=== PATIENT | male | born 1995 | race African-American/Black ===

== ENCOUNTER 2023-05-05 10:02 | Emergency (ER) | payer OTHER, SELFPAY ==
[2023-05-05] VITALS (21 sets, daily range): BP systolic 112–146; BP diastolic 50–100; PULSE 48–139; RESP 18; TEMP 36.2; O2SAT 91–99; BMI 26.4
--- NOTE | 2023-05-05 11:33 | ED.NURSE ---
verbal order given for repeat adenosine dose of 12mg. This was given with MD at bedside at 1126.
[2023-05-05] MEDS: ADENOSINE 6 MG/2ML INJ IVP (11:35)
[2023-05-05] MEDS: ADENOSINE 6 MG/2ML INJ 12 MG IVP (11:40)
[2023-05-05] MEDS: METOPROLOL TARTRATE 1 MG/ML inj 5 MG IVP (11:59)
[2023-05-05] MEDS: 0.9 % SODIUM CHLORIDE 1000 ml 1,000 ML IV (12:00)
[2023-05-05] MEDS: dilTIAZem 5 MG/ML inj 20 MG IVP (12:36)
--- NOTE | 2023-05-05 12:55 | ED.ARRPALP ---
HPI - Arrhythmia/Palpitations General Chief Complaint: Arrhythmia/Palpitations Stated Complaint: Irregular heartbeat Time Seen by Provider: 05/05/23 10:44 History of Present Illness HPI narrative: This 28-year-old male comes in with palpitations and increased heart rate. He states that he is otherwise in good health. He arrives with a heart rate at 170 beats per minute. He states that he did have some alcohol last night. He is not on any other medications. He does not have a prior history of symptoms like this. He does not report any chest pain, nausea, vomiting, lightheadedness, shortness of breath, or diaphoresis. He states that he does feel some tingling in his fingers at times. Related Data Previous Rx's Medication Instructions Recorded metoprolol tartrate 25 mg tablet 25 mg PO BID #14 tabs 05/05/23 Allergies Allergy/AdvReac Type Severity Reaction Status Date / Time No Known Drug Allergies Allergy Verified 05/05/23 10:10 Review of Systems Status of ROS: Reports: 10 or more systems reviewed and unremarkable except as noted in History and below Narrative: Constitutional: No fevers, no weight gain or loss. Eyes: No discharge. No vision changes. HENT: No congestion, no sore throat, no ear pain. Cardiovascular: No chest pain. Respiratory: No shortness of breath, no wheezes, no cough. Gastrointestinal: No abdominal pain, no vomiting, no diarrhea. Genitourinary: No dysuria, no hematuria. Musculoskeletal: Normal range of motion. Skin: No rashes, no pruritis. Neurological: No dizziness, weakness, speech change. Endo/Heme/Allergies: No bruising or bleeding. No polydipsia. Pysch: no suicidality, no anxiety, no insomnia. All other systems reviewed and are negative. Exam Narrative: Exam Narrative: Constitutional: Well-developed, well-nourished, no acute distress. HEENT: Normocephalic, atraumatic. Neck: Normal range of motion. Nontender. Supple. Heart: Tachycardia. Intact distal pulses. Lungs: Clear to auscultation. No chest discomfort. No wheezes, rhonchi, or rales. Abdomen: Normal bowel sounds. Nontender. No rebound tenderness. Genitalia: Deferred. Back: No midline tenderness. Normal range of motion. Extremities: Normal range of motion. No injury. Skin: Intact. No rash. Warm. No erythema or pallor. Neurologic: No altered sensation. No weakness. Alert and oriented. Psychiatric: No suicidality. No anxiety or depression. No insomnia. Nursing notes and vitals signs are reviewed. Const: Vital Signs, click to edit/add: Vital Signs - 24 hr 05/05/23 10:07 05/05/23 10:20 05/05/23 10:21 Temperature 97.2 F L Pulse Rate 85 88 Pulse Rate [Right Pulse Oximeter] 120 H Respiratory Rate 18 Blood Pressure 114/89 Blood Pressure [Ri ght Upper Arm] 146/78 H Pulse Oximetry 98 96 97 Oxygen Delivery Me thod Room Air 05/05/23 10:30 05/05/23 10:31 05/05/23 10:45 Temperature Pulse Rate 92 139 H 102 H Pulse Rate [Right Pulse Oximeter] Respiratory Rate Blood Pressure 130/98 H Blood Pressure [Ri ght Upper Arm] Pulse Oximetry 99 97 98 Oxygen Delivery Me thod 05/05/23 11:00 05/05/23 11:03 05/05/23 11:15 Temperature Pulse Rate 91 82 79 Pulse Rate [Right Pulse Oximeter] Respiratory Rate Blood Pressure 118/50 L Blood Pressure [Ri ght Upper Arm] Pulse Oximetry 98 96 97 Oxygen Delivery Me thod 05/05/23 11:30 05/05/23 11:34 Temperature Pulse Rate 83 93 Pulse Rate [Right Pulse Oximeter] Respiratory Rate Blood Pressure 112/82 Blood Pressure [Ri ght Upper Arm] Pulse Oximetry 95 96 Oxygen Delivery Me thod Course Vital Signs Vital signs: Initial Vital Signs Temperature 97.2 F L 05/05/23 10:07 Temperature Source Temporal Artery Scan 05/05/23 10:07 Pulse Rate 120 H 05/05/23 10:07 Respiratory Rate 18 05/05/23 10:07 Blood Pressure 146/78 H 05/05/23 10:07 Blood Pressure Mean 100 05/05/23 10:07 Blood Pressure Position Sitting 05/05/23 10:07 Pulse Oximetry 98 05/05/23 10:07 Oxygen Delivery Method Room Air 05/05/23 10:07 Vital Signs Temperature 97.2 F L 05/05/23 10:07 Pulse Rate 120 H 05/05/23 10:07 Respiratory Rate 18 05/05/23 10:07 Blood Pressure 146/78 H 05/05/23 10:07 Pulse Oximetry 98 05/05/23 10:07 Oxygen Delivery Method Room Air 05/05/23 10:07 Temperature 97.2 F L 05/05/23 10:07 Pulse Rate 93 05/05/23 11:34 Respiratory Rate 18 05/05/23 10:07 Blood Pressure 112/82 05/05/23 11:34 Pulse Oximetry 96 05/05/23 11:34 Oxygen Delivery Method Room Air 05/05/23 10:07 MDM - Arrhythmia/Palpitations MDM Narrative Medical decision making narrative: This patient arrives with tachycardia with a rate around 170 beats per minute. Given the increased heart rate it is difficult to discern what kind of rhythm it is. I was assuming it was supraventricular tachycardia. An IV was established and a point of care troponin returns at 0. The patient received 6 mg of Adenocard which brought no lasting results. The dose was increased to 12 mg again with no change in his rate or rhythm. The patient then received 5 mg of metoprolol which slowed the rate enough to see that it was atrial fibrillation with rapid ventricular response. Patient then received 20 mg of diltiazem. His rate is normal but he continues in atrial fibrillation. I did recommend synchronized cardioversion and described the process involved. The patient states that he does not want to have this done and believes that if he relaxes and waits it out he'll go back to normal sinus rhythm. I stated that there is an increased risk for a blood clot with this kind of rhythm and he can began to have tachycardia again. Still the patient chose to not have any further treatment. He wishes to return home. I did advise him to take an aspirin daily and provided also a prescription for metoprolol tartrate 25 mg. I recommended that he return if symptoms are persistent or worsening. Discharge Plan Discharge Clinical Impression: Atrial fibrillation with rapid ventricular response Patient Disposition: Home, Self-Care Condition: Stable Additional Instructions: Take an aspirin daily. Take metoprolol if heart rate is increased. Return to emergency department if symptoms are persistent or worsening. Prescriptions: New metoprolol tartrate 25 mg tablet 25 mg PO BID Qty: 14 2RF Follow Up/Referrals: Provider,Not a Local [Primary Care Provider] - Stand Alone Forms: [employer] Info Instructions
== END 2023-05-05 13:09 | disposition home or self-care (01) ==
PROVIDERS: Emergency Provider Emergency Medicine Emergency Medical Services
DX: I48.91 Unspecified atrial fibrillation (principal)
CPT/HCPCS: 93005; 96361; 96374; 96375; 96376; 99284; J0153; J7030